=== PATIENT | female | born 1960 | race Caucasian/White ===

== ENCOUNTER → 2016-06-10 | Outpatient (CLI) | payer OTHER | LOC: SUN.DIA 09:15 | DX: E11.65 Type 2 diabetes mellitus with hyperglycemia (principal); E66.9 Obesity, unspecified; Z68.39 Body mass index [BMI] 39.0-39.9, adult; Z71.3 Dietary counseling and surveillance; I10 Essential (primary) hypertension; E03.9 Hypothyroidism, unspecified | CPT/HCPCS: G0108 ==

== ENCOUNTER → 2016-07-06 | Outpatient (REF) ==
[2016-07-06 14:52] LABS: THYROID STIMULATING HORMONE < 0.015 uIU/mL (0.465-4.680)
== END ==
LOC: ZLAB.WCH 13:51
PROVIDERS: Family Medicine
DX: Z01.89 Encounter for other specified special examinations (principal)

== ENCOUNTER → 2016-11-23 | Outpatient (REF) ==
[2016-11-23 11:46] LABS: THYROID STIMULATING HORMONE < 0.015 uIU/mL (0.465-4.680)
== END ==
LOC: ZLAB.WCH 11:02
PROVIDERS: Family Medicine
DX: Z01.89 Encounter for other specified special examinations (principal)

== ENCOUNTER → 2017-06-07 | Outpatient (REF) ==
[2017-06-07 12:59] LABS: THYROID STIMULATING HORMONE 0.38 uIU/mL (0.465-4.680)
== END ==
LOC: ZLAB.WCH 11:07
PROVIDERS: Family Medicine
DX: Z01.89 Encounter for other specified special examinations (principal)

== ENCOUNTER → 2017-08-07 | Outpatient (REF) ==
[2017-08-07 18:49] LABS: THYROID STIMULATING HORMONE 0.149 uIU/mL (0.465-4.680)
== END ==
LOC: ZLAB.WCH 17:52
PROVIDERS: Family Medicine
DX: Z01.89 Encounter for other specified special examinations (principal)

== ENCOUNTER → 2017-12-03 | Outpatient (REF) ==
[2017-12-03 15:15] LABS: THYROID STIMULATING HORMONE 0.438 uIU/mL (0.465-4.680)
== END ==
LOC: ZLAB.WCH 14:19
PROVIDERS: Family Medicine
DX: Z01.89 Encounter for other specified special examinations (principal)

== ENCOUNTER → 2018-05-29 | Outpatient (REF) | LOC: ZLAB.WCH 16:23 | DX: Z01.89 Encounter for other specified special examinations (principal) ==

== ENCOUNTER → 2018-06-12 | Outpatient (REF) ==
[2018-06-12 18:54] LABS: THYROID STIMULATING HORMONE 3.38 uIU/mL (0.465-4.680)
== END ==
LOC: ZLAB.WCH 17:58
PROVIDERS: Family Medicine
DX: Z01.89 Encounter for other specified special examinations (principal)